=== PATIENT | female | born 1950 | race Caucasian/White ===

== ENCOUNTER 2019-12-27 17:34 | Emergency (ER) | payer OTHER, SELFPAY ==
[2019-12-27 17:44] VITALS: BP 145/89; PULSE 86; RESP 16; TEMP 36.7; O2SAT 100
--- NOTE | 2019-12-27 18:04 | ED.GENADUL_ITS ---
Discharge Plan Disposition Patient Disposition: HOME Discharge Details Chief Complaint: Cellulitis Clinical Impression: Cellulitis of foot, right ED Provider: Tushar Beard Home Meds and New Rx's Prescriptions: New cephalexin [Keflex] 500 mg capsule 500 mg PO QID Qty: 39 RF: 0 Continued lisinopril 10 mg Tablet 10 mg PO DAILY RF: 0 hydrochlorothiazide 25 mg Tablet 25 mg PO DAILY RF: 0 Discharge Instructions Instructions: Cellulitis (ED) Additional Instructions: I am concerned that the inflammation of the right foot is caused by infection. You have been started on antibiotic called Keflex. Please be sure to complete the full course of antibiotic as prescribed. Please contact your primary care physician to arrange follow-up. Return to the ER for any worsening or new concerning symptoms. If inflammation persists despite antibiotic, you may need additional diagnostic testing/treatment. Medical Decision Making 69-year-old female here with inflammation of her dorsal right foot that started yesterday. Patient has erythema and warmth of the dorsal foot with a central area of focal mild swelling. Area is tender to palpation. Concern for potential insect bite and superimposed cellulitis. Point of care ultrasound was utilized to determine if fluid collection present under area of swelling that would be amenable to incision and drainage. No fluid collection identified. Suspect cellulitis. Plan to treat with Keflex. Usual and customary discharge instructions were provided the patient. She understands that if symptoms do not improve or worsen while taking antibiotic that additional diagnostics and treatment would be indicated. HPI General Mode of arrival: ambulatory . Date/Time Provider Initiated Documentation: 12/27/19 17:46 . Limitations to Documentation: no limitations . Information obtained by: patient . HPI Narrative: 69-year-old female presents with chief complaint of right foot inflammation. Patient notes foot started to be painful yesterday and worse today. She noticed redness on the dorsum of her foot today. Pain is now throbbing and worse on palpation. Denies any injury. Denies other rash. She does not recall any insect bite. Does note there is a focal central area seems more swollen. Related Data Home Medications Medication Instructions Recorded Confirmed cephalexin [Keflex] 500 mg PO QID #39 cap 12/27/19 hydrochlorothiazide 25 mg PO DAILY 12/27/19 12/27/19 lisinopril 10 mg PO DAILY 12/27/19 12/27/19 Previous Rx's Medication Instructions Recorded cephalexin [Keflex] 500 mg PO QID #39 cap 12/27/19 Allergies Allergy/AdvReac Type Severity Reaction Status Date / Time No Known Allergies Allergy Unverified 12/27/19 17:47 General Stated Complaint: Cellulitis KARI: 3 Review of Systems Constitutional Constitutional: Denies fever(s) Integumentary/Breasts Skin/Breast: Reports as per HPI [facility] Medical History (Updated 12/27/19 @ 18:12 by Tushar Beard MD) Hypertension (Chronic) Social History Smoking/Tobacco Use Status: Never Substance use type: does not use Exam Const General: cooperative, healthy appearing and no acute distress Cardio Rate: regular rate Rhythm: regular rhythm Pulses: dorsalis pedis present on the right 2+ Skin Rashes: rashes noted (Erythema dorsum right foot with central nickel sized central swelling, ttp) Extrem Right lower extremity: foot (Mild swelling dorsum of foot) Details: warmth Location: of the dorsal foot Course Vital Signs Vital signs: Vital Signs Temperature 36.7 C 12/27/19 17:44 Pulse 86 12/27/19 17:44 Respiratory Rate 16 12/27/19 17:44 Blood Pressure 145/89 H 12/27/19 17:44 Pulse Oximetry 100 12/27/19 17:44 Temperature 36.7 C 12/27/19 17:44 Temperature Source Skin 12/27/19 17:44 Pulse 86 12/27/19 17:44 Respiratory Rate 16 12/27/19 17:44 Respiratory Effort Non-Labored 12/27/19 17:44 Blood Pressure 145/89 H 12/27/19 17:44 Blood Pressure Position Sitting 12/27/19 17:44 Pulse Oximetry 100 12/27/19 17:44 Oxygen Delivery Method Room Air 12/27/19 17:44 Oxygen Flow Rate 0 12/27/19 17:44 Pain Level 8 12/27/19 17:44
[2019-12-27] MEDS: Cephalexin 500 MG CAP PO (18:08)
[2019-12-27] MEDS: Ibuprofen 600 MG TAB PO (18:08)
== END 2019-12-27 18:16 | disposition home or self-care (01) ==
LOC: ER 18:28
PROVIDERS: Emergency Provider Student in an Organized Health Care Education/Training Program
DX: L03.115 Cellulitis of right lower limb (principal); I10 Essential (primary) hypertension
CPT/HCPCS: 99283